=== PATIENT | male | born 1975 | race Two or more races ===

== ENCOUNTER 2018-07-03 14:55 | Emergency (ER) | payer OTHER ==
[~2018-07-03] VITALS: Ht 170.2 cm; Wt 113.4 kg
[2018-07-03] MEDS ORDERED: METOPROLOL ER-1 EACH (15:19)
== END 2018-07-03 21:18 | disposition home or self-care (01) ==
LOC: ER 14:55
DX: K62.5 Hemorrhage of anus and rectum (principal)

== ENCOUNTER 2025-01-23 14:43 | Outpatient (CLI) | payer OTHER ==
[~2025-01-23 14:43] MED LIST: MEDROLPACK PO; METHOCARBAMOL750 MG PO; METOPROLOL ER-1 EACH; NABUMETONE750 MG PO; NORFLEX100MG PO
== END 2025-01-23 14:48 | disposition home or self-care (01) ==
LOC: MRI 14:43
PROVIDERS: ATTEND Physical Medicine & Rehabilitation
DX: M46.96 Unspecified inflammatory spondylopathy, lumbar region (principal); M25.551 Pain in right hip; M54.2 Cervicalgia